=== PATIENT | female | born 1950 | race Caucasian/White ===

== ENCOUNTER 2022-01-25 11:52 | Day surgery (SDC) | payer MEDICARE, SELFPAY ==
[2021-10-13 12:23] VITALS: BMI 33.1
[2022-01-13 15:00] VITALS: BMI 30.9
[2022-01-25 12:13] VITALS: BP 145/71; PULSE 76; RESP 16; TEMP 36.6; O2SAT 100
[2022-01-25] MEDS: LACTATED RINGERS 1,000 ML 150 ML IV CONT (12:28)
--- NOTE | 2022-01-25 12:32 | WPDANESEPPF ---
Anes - Initial Pre Proc Eval Procedure: Operation Date: 01/25/22 13:45 Proposed Procedures s Esophagogastroduodenoscopy - Miles Rendon MD p Diagnostic Colonoscopy - Miles Rendon MD Date/Time: 01/25/22 12:32 Surgeon: Miles Rendon MD Pre Op Diagnosis: Change in bowel habits, Right Upper Quadrant Pain Patient Data Age: 71 Gender: F Height: 1.68 m Weight: 86.8 kg Last Vital Signs Temp 36.6 C 01/25/22 12:13 Pulse 76 01/25/22 12:13 Resp 16 01/25/22 12:13 BP 145/71 H 01/25/22 12:13 Pulse Ox 100 01/25/22 12:13 O2 Del Method Room Air 01/25/22 12:13 Allergies Allergy/AdvReac Type Severity Reaction Status Date / Time Penicillins Allergy Unknown Other Verified 01/25/22 12:11 Home Medications Medication Instructions Recorded Confirmed Type peg 3350-electrolytes 236 240 ml PO Q10M #4,000 mL 10/13/21 Rx gram-22.74 gram-6.74 gram-5.86 gram solution (Golytely) calcium carbonate-vitamin D3 600 1 tablet PO DAILY 01/13/22 01/25/22 History mg calcium-200 unit chewable tablet ferrous sulfate 325 mg (65 mg 325 mg PO DAILY 01/13/22 01/25/22 History iron) tablet levothyroxine 100 mcg tablet 100 mcg PO DAILY 01/13/22 01/25/22 History vit C 250 mg-vit E 90 mg-zinc 40 1 tablet PO DAILY 01/13/22 01/25/22 History mg-copper 1 [id number] capsule (PreserVision AREDS-2) Patient hx anesthesia problems: none Family hx anesthesia problems: none Results Review: All pre-operative results and documents have been reviewed as part of the pre-operative evaluation. [facility] Past Medical History Medical History (Updated 01/25/22 @ 12:32 by Johnny Whittington MD) Obesity Family History Family History Other Cerebrovascular accident Family history of Alzheimer's disease Family history of blood dyscrasia Social History Social History (Updated 01/25/22 @ 12:32 by Johnny Whittington MD) Smoking status: Former smoker Tobacco type: cigarettes Alcohol intake: never Drinks per week: 7 Alcohol use details: 1 PER DAY Substance use: never Substance use type: does not use Living arrangements: with family Spiritual care concerns: No Anes - Eval Final PreProcedure Day of Procedure 01/25/22 12:32 Patient weight: obese Heart: regular rate and rhythm Lungs: clear to auscultation Airway: Mallampati scale class II Neurological: alert and oriented ASA classification: II Emergent: no Anesthetic plan: proceed Anesthesia type and monitoring: general GIVS and standard monitoring Results Review: All pre-operative results and documents have been reviewed as part of the pre-operative evaluation. Informed Consent: The patient's anesthetic plan and its attendant risks and benefits were discussed with the patient/family/POA. Questions were solicited and answers provided to the satisfaction of the patient/family/POA.
--- NOTE | 2022-01-25 12:58 | PM.HPGS ---
History of Present Illness History of Present Illness Consent: Risks, benefits, and alternatives have been discussed and questions answered. Patient agrees to proceed with procedure. Chief complaint: Change in bowel habits, Right Upper Quadrant Pain Narrative: Taylor Wood is a 71 year old female presents for colonoscopy an EGD. Patient presents for screening colonoscopy as this is a 10 year interval and has been prescribed to screening. Patient reports she now has right upper quadrant abdominal pain. In September she was found to have gallbladder disease. Underwent cholecystectomy. Apparently this was quite inflamed with acute and chronic inflammation. She had an external drain for several weeks after surgery. She has continued to have right upper quadrant discomfort for this reason an EGD is requested to exclude upper GI pathology. Patient denies a fever. She has had no bleeding. She has had no weight loss. Review of Systems Review of Systems: Review of systems is noncontributory. [facility] Past Medical History Medical History (Updated 01/25/22 @ 13:00 by Miles Rendon MD) Obesity Family History Family History Other Cerebrovascular accident Family history of Alzheimer's disease Family history of blood dyscrasia Social History Social History (Updated 01/25/22 @ 12:32 by Johnny Whittington MD) Smoking status: Former smoker Tobacco type: cigarettes Alcohol intake: never Drinks per week: 7 Alcohol use details: 1 PER DAY Substance use: never Substance use type: does not use Living arrangements: with family Spiritual care concerns: No Meds Home Medications and Allergies Home Medications Medication Instructions Recorded Confirmed Type peg 3350-electrolytes 236 240 ml PO Q10M #4,000 mL 10/13/21 Rx gram-22.74 gram-6.74 gram-5.86 gram solution (Golytely) calcium carbonate-vitamin D3 600 1 tablet PO DAILY 01/13/22 01/25/22 History mg calcium-200 unit chewable tablet ferrous sulfate 325 mg (65 mg 325 mg PO DAILY 01/13/22 01/25/22 History iron) tablet levothyroxine 100 mcg tablet 100 mcg PO DAILY 01/13/22 01/25/22 History vit C 250 mg-vit E 90 mg-zinc 40 1 tablet PO DAILY 01/13/22 01/25/22 History mg-copper 1 [id number]-[id number] capsule (PreserVision AREDS-2) Allergies Allergy/AdvReac Type Severity Reaction Status Date / Time Penicillins Allergy Unknown Other Verified 01/25/22 12:11 Vital Signs Vital Signs - 24 hr 01/25/22 12:13 Temperature 98 F Pulse Rate 76 Respiratory Rate 16 Blood Pressure 145/71 H Pulse Oximetry 100 Oxygen Delivery Room Air Exam Narrative: Physical exam reveals patient to be alert. Vital signs stable. HEENT exam is unremarkable. Patient is anicteric. Lungs are clear to auscultation and percussion. Heart is without murmur or extra sounds. Abdomen bowel sounds are present soft nontender with no organomegaly. Digital external rectal exam is normal. Assessment and Plan Assessment and plan (1) Encounter for screening colonoscopy: Code(s): Z12.11 - Encounter for screening for malignant neoplasm of colon Status: Acute Assessment and Plan: Patient presents for screening colonoscopy. Been 10 years since last exam. Further recommendations may be given after endoscopy. (2) RUQ abdominal pain: Code(s): R10.11 - Right upper quadrant pain Status: Acute Assessment and Plan: Patient with ongoing right upper quadrant pain this has persisted despite cholecystectomy. Cholecystectomy several months ago in September. She did require external drain for several weeks postoperatively because of the significant inflammation encountered pain may be related to postsurgical pain. Further recommendations may be given after endoscopy which is requested for this reason. (3) History of cholecystectomy: Code(s): Z90.49 - Acquired absence of o
[2022-01-25 13:41] VITALS: BP 135/69; PULSE 72; RESP 16; O2SAT 100
--- NOTE | 2022-01-25 13:50 | WPDANESPN ---
Anes - Prog Note Post-Op Date/Time: 01/25/22 13:50 Cardiovascular status: normal Respiratory status: normal Airway patency: baseline Mental status: baseline Vital Signs: Last Vital Signs Temp 36.6 C 01/25/22 12:13 Pulse 72 01/25/22 13:41 Resp 16 01/25/22 13:41 BP 135/69 01/25/22 13:41 Pulse Ox 100 01/25/22 13:41 O2 Del Method Room Air 01/25/22 13:41 Pain Score (VAS): 0/10 I/O: Intake & Output 01/24/22 01/25/22 01/25/22 23:59 07:59 15:59 Intake Total 600 Balance 600 Patient Feedback: Patient satisfied with anesthetic care.
[2022-01-25 13:51] VITALS: BP 144/63; PULSE 74; RESP 16; O2SAT 100
[2022-01-25 14:03] VITALS: BP 139/68; PULSE 69; RESP 18; O2SAT 100
== END 2022-01-25 14:23 | disposition home or self-care (01) ==
PROVIDERS: PCP Nurse Practitioner Family; Visit Provider Internal Medicine Gastroenterology
PROC: 0DJ08ZZ Inspection of Upper Intestinal Tract, Via Natural or Artificial Opening Endoscopic (ICD-10-PCS; CPT 43235; principal; 2022-01-25 13:45)
PROC: 0DJD8ZZ Inspection of Lower Intestinal Tract, Via Natural or Artificial Opening Endoscopic (ICD-10-PCS; CPT 45378; 2022-01-25 13:45)
DX: Z12.11 Encounter for screening for malignant neoplasm of colon (principal)
CPT/HCPCS: 45378; 43239